=== PATIENT | female | born 1950 | race Caucasian/White ===

== ENCOUNTER 2018-06-24 23:45 | Emergency (ER) | payer MEDICARE, BC ==
[2018-06-25] MEDS ORDERED: Aspirin 81 mg CHEW TAB* 81 MG TAB.CHEW PO ONE (00:19)
[2018-06-25] MEDS ORDERED: oxyCODONE/Acetamin 5/325 MG* TAB PO ONE (00:19)
[2018-06-25 00:45] LABS: ABS Basophils 0.1 10^3/ul (0-0.2); ABS Eosinophils 0.1 10^3/ul (0-0.6); ABS Lymphocytes 2.1 10^3/ul (1.0-4.8); ABS Monocytes 0.7 10^3/ul (0-0.8); ABS Neutrophils 5.5 10^3/ul (1.5-7.7); Eosinophil % 0.9 %; Hematocrit 48 % (35-47); Hemoglobin 16.7 g/dL (12.0-16.0); Lymphocyte % 24.5 %; Mean Corpuscular HGB Conc 35 g/dL (31-36); Mean Corpuscular Hemoglobin 31 pg (27-31); Mean Corpuscular Volume 88 fL (80-97); Mean Platelet Volume 7.9 fL (7.4-10.4); Nucleated Red Blood Cells % 0.1; Platelet Count 189 10^3/uL (150-450); Red Blood Count 5.41 10^6 /uL (3.70-4.87); Red Cell Distribution Width 14 % (10.5-15); White Blood Count 8.4 10^3/uL (3.5-10.8)
--- NOTE | 2018-06-25 00:48 | ED ---
HPI Chest Pain - HPI Summary HPI Summary: This patient is a 67 year old F brought in by ambulance to ED with a chief complaint of CP and SOB since 3 days ago. The CC is described as non-radiating, intermittent, and sharp. The patient rates the pain 2/10 in severity. Symptoms aggravated by nothing. Symptoms alleviated by nothing. Patient reports she also had a tick bite on her R hip that she removed and has been on abx of which she finished yesterday. Patient denies dysuria or itching with urination. No previous episodes similar to this. She takes BP medication and insulin. Patient is a non-smoker. She has not had ASA. She also says that she lost her 3 weeks ago from a heart attack. - History of Current Complaint Chief Complaint: EDChestPainROMI Time Seen by Provider: 06/25/18 00:01 Hx Obtained From: Patient Onset/Duration: Started Days Ago, Still Present Timing: Intermittent Initial Severity: Mild Current Severity: Mild Pain Intensity: 2 Pain Scale Used: 0-10 Numeric Chest Pain Radiates: No Character: Sharp/Stabbing Aggravating Factor(s): Nothing Alleviating Factor(s): Nothing Associated Signs and Symptoms: Positive: Chest Pain, Shortness of Breath, Other : - denies dysuria or itching with urination - Allergy/Home Medications Allergies/Adverse Reactions: Allergies Allergy/AdvReac Type Severity Reaction Status Date / Time No Known Allergies Allergy Verified 06/24/18 23:51 Home Medications: Home Medications Insulin Glargine,Hum.rec.anlog [Lantus Solostar 5x3 ML PENS] 06/25/18 [History] Pen Needle, Diabetic [[place]] 06/25/18 [History] PMH/Surg Hx/FS Hx/Imm Hx Endocrine/Hematology History: Denies: Hx Diabetes Cardiovascular History: Reports: Hx Hypertension - TAKES MEDICATION FOR Denies: Hx Pacemaker/ICD Respiratory History: Denies: Hx Asthma History: Denies: Hx Dialysis, Hx Renal Disease Sensory History: Denies: Hx Hearing Aid Psychiatric History: Denies: Hx Panic Disorder - Cancer History Cancer Type, Location and Year: BREAST CA DIAGNOSED THIS YEAR/RT - Surgical History Surgery Procedure, Year, and Place: POLIO-R LEG/FOOT SURGERY 1962&64,. TONSILS 1952,. LAPARSCOPIC TUBES TIED 1971. RT SIDE LUMPECTOMY, - Immunization History Date of Tetanus Vaccine: unk Date of Influenza Vaccine: none Infectious Disease History: No Infectious Disease History: Denies: Traveled Outside the [place] in Last 30 Days - Family History Known Family History: Negative: Cardiac Disease, Hypertension, Diabetes - Social History Alcohol Use: None Hx Substance Use: No Substance Use Type: Reports: None Hx Tobacco Use: No Smoking Status (MU): Never Smoked Tobacco Review of Systems Positive: Chest Pain Positive: Shortness Of Breath Positive: other - denies itching with urination. Negative: dysuria Psychological: Other - recent stress from passing away from a heart attack 3 weeks ago All Other Systems Reviewed And Are Negative: Yes Physical Exam - Summary Physical Exam Summary: VITAL SIGNS: Reviewed. GENERAL: Patient is a well-developed and nourished FEMALE who is lying comfortable in the stretcher. Patient is not in any acute respiratory distress. HEAD AND FACE: No signs of trauma. No ecchymosis, hematomas or skull depressions. No sinus tenderness. EYES: PERRLA, EOMI x 2, No injected conjunctiva, no nystagmus. EARS: Hearing grossly intact. Ear canals and tympanic membranes are within normal limits. MOUTH: Oropharynx within normal limits. NECK: Supple, trachea is midline, no adenopathy, no JVD, no carotid bruit, no c- spine tenderness, neck with full ROM CHEST: Symmetric, no tenderness at palpation LUNGS: Clear to auscultation bilaterally. No wheezing or crackles. CVS: Regular rate and rhythm, S1 and S2 present, no murmurs or gallops appreciated. ABDOMEN: Soft, non-tender. No signs of distention. No rebound no guarding, and no masses palpated. Bowel sounds are normal. EXTREMITIES: FROM in all major joints, no edema, no cyanosis or clubbing. NEURO: Alert and oriented x 3. No acute neurological deficits. Speech is normal and follows commands. SKIN: Dry and warm Triage Information Reviewed: Yes Vital Signs On Initial Exam: Initial Vitals Temp Pulse Resp BP Pulse Ox 98.4 F 60 15 163/69 99 06/24/18 23:49 06/24/18 23:49 06/24/18 23:49 06/24/18 23:49 06/24/18 23:49 Vital Signs Reviewed: Yes Diagnostics - Vital Signs Vital Signs Temp Pulse Resp BP Pulse Ox 06/25/18 00:28 16 06/25/18 00:26 64 22 132/75 97 06/25/18 00:00 63 20 98 06/24/18 23:56 62 18 163/69 99 06/24/18 23:54 59 99 06/24/18 23:49 98.4 F 60 15 163/69 99 - Laboratory Result Diagrams: 06/25/18 00:32 06/25/18 00:32 Lab Statement: Any lab studies that have been ordered have been reviewed, and results considered in the medical decision making process. - Radiology CXR Radiology Interpretation Completed By: ED Physician Summary of Radiographic Findings: No acute processes. Pending radiologist official report. - EKG 6057 Cardiac Rate: NL - 61 BPM EKG Rhythm: Sinus Rhythm Summary of EKG Findings: NSR at 61 BPM, nonspecific T wave changes, poor R wave progression, Q wave from V1-V3, and similar to EKG on 07/06/2005. Re-Evaluation - Re-Evaluation First Eval Re-Evaluation Time: 03:53 Change: Improved Comment: Discussed results and plan for discharge with the patient. Patient understands and agrees with this plan. Chest Pain Course/Dx - Course Assessment/Plan: This patient is a 67 year old F brought in by ambulance to ED with a chief complaint of CP and SOB since 3 days ago. In the ED course, the patient was given ASA and Percocet. EKG reveals NSR at 61 BPM, nonspecific T wave changes, poor R wave progression, Q wave from V1-V3, and similar to EKG on 07/06/2005. CXR reveals no acute processes. Patient is pain free in the ED. She had a normal EKG. Two cardiac enzymes are negative. Heart score is 2. She will be given instructions to follow up with cardiology as an outpatient. Therefore, the patient will be discharged with dx of atypical chest pain. Patient understands and agrees with this plan. - Chest Pain Differential Diagnosis/HQI/PQRI: Other: - atypical chest pain - Diagnoses Provider Diagnoses: Atypical chest pain Discharge - Sign-Out/Discharge Documenting (check all that apply): Patient Departure - discharge Patient Received Moderate/Deep Sedation with Procedure: No - Discharge Plan Condition: Stable Disposition: HOME Patient Education Materials: Chest Pain (ED) Referrals: Mal Moeller MD [Medical Doctor] - (Follow up in 2-3 days for a stress test.) Additional Instructions: PLEASE RETURN TO THE ED IMMEDIATELY FOR WORSENING OR CONCERNING SYMPTOMS. - Attestation Statements Document Initiated by Scribe: Yes Documenting Scribe: Zana Quinn Provider For Whom Scribe is Documenting (Include Credential): Kiya Cunningham MD Scribe Attestation: IZana, scribed for Kiya Cunningham MD on 06/25/18 at 0353. Status of Scribe Document: Ready
[2018-06-25 00:52] LABS: Activated Partial Thrombo Time 27.6 seconds (26.0-36.3); INR 1.07 (0.82-1.09)
[2018-06-25 00:55] LABS: Albumin 3.9 g/dL (3.2-5.2); Albumin/Globulin Ratio 1.4 (1-3); BUN/Creatinine Ratio 19.5 (8-20); Calcium 9.7 mg/dL (8.6-10.3); EGFR African American 84.1 (>60); EGFR Non-African American 69.5 (>60); Globulin 2.8 g/dL (2-4); Magnesium 1.9 mg/dL (1.9-2.7); Potassium 3.1 mmol/L (3.5-5.0); Total Bilirubin 1.8 mg/dL (0.2-1.0); Total Protein 6.7 g/dL (6.4-8.9)
[2018-06-25 00:56] LABS: Troponin I 0.01 ng/mL (<0.04)
[2018-06-25] MEDS ORDERED: Potassium Chlor TAB* 20 MEQ TAB.ER PO ONE (01:36)
[2018-06-25 02:05] LABS: Urine Appearance Clear; Urine Bacteria Absent (Absent); Urine Bilirubin Negative (Negative); Urine Blood 1+ (Negative); Urine Color Yellow; Urine Glucose Negative (Negative); Urine Ketones 1+ (Negative); Urine Nitrite Negative (Negative); Urine Protein Negative (Negative); Urine Red Blood Cell 2+(6-10/hpf) (Absent); Urine Specific Gravity 1.012 (1.010-1.030); Urine Squamous Epithelial Cell Present (Absent); Urine Urobilinogen Negative (Negative); Urine White Blood Cell Absent (Absent)
[2018-06-25 04:04] VITALS: BP 125/90
== END 2018-06-25 04:06 | disposition home or self-care (01) ==
LOC: ED 23:45 → MERGE 23:45 → ED 06-25 04:06
DX: R07.89 Other chest pain (principal); R06.02 Shortness of breath; Z85.3 Personal history of malignant neoplasm of breast; I10 Essential (primary) hypertension
CPT/HCPCS: 36415; 71045; 80053; 81003; 81015; 83735; 83880; 84484; 85025; 85610; 85730; 93005; 99284; A9270-GY